=== PATIENT | female | born 1940 ===

== ENCOUNTER → 2024-01-02 09:36 | Outpatient (REF) | payer OTHER, SELFPAY | LOC: RAD 09:36 | PROVIDERS: ATTENDING PHYSICIAN Internal Medicine Cardiovascular Disease; FAMILY PHYSICIAN Nurse Practitioner Gerontology | DX: R06.09 Other forms of dyspnea (principal); I48.21 Permanent atrial fibrillation; Z95.0 Presence of cardiac pacemaker; I10 Essential (primary) hypertension; E78.5 Hyperlipidemia, unspecified; R94.39 Abnormal result of other cardiovascular function study | CPT/HCPCS: 75574; Q9967 ==